=== PATIENT | female | born 1980 | race Caucasian/White ===

== ENCOUNTER 2019-04-20 02:22 | Emergency (ER) | payer OTHER ==
[~2019-04-20] VITALS: Ht 165.1 cm; Wt 147.4 kg
[2019-04-20 02:33] VITALS: Ht 165.1 cm; Wt 147.4 kg
[2019-04-20 05:12] VITALS: BP 156/96
== END 2019-04-20 05:12 | disposition home or self-care (01) ==
LOC: ED 02:22
DX: S70.01XA Contusion of right hip, initial encounter (principal); Z88.1 Allergy status to other antibiotic agents; W01.0XXA Fall on same level from slipping, tripping and stumbling without subsequent striking against object, initial encounter; Y93.89 Activity, other specified; Y92.89 Other specified places as the place of occurrence of the external cause; Y99.0 Civilian activity done for income or pay
CPT/HCPCS: J1885